=== PATIENT | male | born 1980 | race Caucasian/White ===

== ENCOUNTER 2019-03-21 06:32 | Day surgery (SDC) | payer BC ==
--- NOTE | 2019-03-20 13:37 | PCM.PREANE ---
Preanesthetic Assessment - Anesthesia/Transfusion/Family Hx Anesthesia History: No Prior Anesthesia Family History of Anesthesia Reaction: No Transfusion History: No Prior Transfusion(s) Intubation History: Unknown - Review of Systems General: No Symptoms Pulmonary: No Symptoms (Smoke: occasionally ETOH: couple drinks of liquor nightly) Cardiovascular: No Symptoms (History HTN) Gastrointestinal: No Symptoms Neurological: No Symptoms Other: Reports: Liver Problems (Elevated liver enzymes), Sinus Problem ( Seasonal allergies) - Physical Assessment NPO Status Date: 03/20/19 NPO Status Time: 23:45 Vital Signs: HR:75 SAT:96 RESP:16 BP:144/94 TEMP:97.2 Height: 1.83 m Weight: 83.007 kg ASA Class: 2 Mental Status: Alert & Oriented x3 Airway Class: Mallampati = 2 Dentition: Reports: Normal Dentition, Caries Thyro-Mental Finger Breadths: 3 Mouth Opening Finger Breadths: 3 ROM/Head Extension: Full Lungs: Clear to Auscultation, Normal Respiratory Effort Cardiovascular: Regular Rate, Regular Rhythm, No Murmurs - Lab Values: Laboratory Last Values WBC 5.94 K/mm3 (4.23-9.07) 03/20/19 09:05 RBC 4.73 M/mm3 (4.63-6.08) 03/20/19 09:05 Hgb 14.2 gm/dl (13.7-17.5) 03/20/19 09:05 Hct 41.8 % (40.1-51.0) 03/20/19 09:05 MCV 88.4 fl (79.0-92.2) 03/20/19 09:05 MCH 30.0 pg (25.7-32.2) 03/20/19 09:05 MCHC 34.0 g/dl (32.2-35.5) 03/20/19 09:05 RDW Std Deviation 41.6 fL (35.1-43.9) 03/20/19 09:05 Plt Count 224 K/mm3 (163-337) 03/20/19 09:05 MPV 9.9 fl (9.4-12.3) 03/20/19 09:05 Sodium 141 mEq/L (136-145) 03/20/19 09:05 Potassium 4.3 mEq/L (3.5-5.1) 03/20/19 09:05 Chloride 105 mEq/L (98-107) 03/20/19 09:05 Carbon Dioxide 29 mEq/L (21-32) 03/20/19 09:05 Anion Gap 11.3 (5-15) 03/20/19 09:05 BUN 17 mg/dL (7-18) 03/20/19 09:05 Creatinine 0.9 mg/dL (0.7-1.3) 03/20/19 09:05 Est Cr Clr Drug Dosing TNP 03/20/19 09:05 Estimated GFR (MDRD) > 60 mL/min (>60) 03/20/19 09:05 BUN/Creatinine Ratio 18.9 (14-18) H 03/20/19 09:05 Glucose 110 mg/dL (74-106) H 03/20/19 09:05 Calcium 9.7 mg/dL (8.5-10.1) 03/20/19 09:05 Above labs reviewed and noted and within acceptable ranges to proceed with scheduled procedure. - Imaging/EKG Impressions: EKG: SR rate=68 - Allergies Allergies/Adverse Reactions: Allergies Allergy/AdvReac Type Severity Reaction Status Date / Time No Known Allergies Allergy Verified 03/19/19 10:46 - Anesthesia Plan Pre-Op Medication Ordered: None - Acknowledgements Anesthesia Type Planned: General Anesthesia Pt an Appropriate Candidate for the Planned Anesthesia: Yes Alternatives and Risks of Anesthesia Discussed w Pt/Guardian: Yes Pt/Guardian Understands and Agrees with Anesthesia Plan: Yes PreAnesthesia Questionnaire - HOME MEDS Home Medications: Home Meds Losartan Potassium 100 mg PO DAILY 03/20/19 [History] Multivitamin [Multi-Day Vitamins] 1 tab PO DAILY 03/20/19 [History] Acetaminophen/HYDROcodone [Grant 325-5 MG] 1 - 2 tab PO Q6H PRN #20 tablet 03/21 [Rx] Aspirin 325 mg PO BID #84 tab 03/21/19 [Rx] - CURRENT (IN HOUSE) MEDS Current Meds: Current Medications Epinephrine HCl (Adrenalin) 3 mg IRR ONETIME DAREK Stop: 03/21/19 23:00 Lactated Ringer's (Ringers, Lactated) 1,000 mls @ 125 mls/hr IV ASDIRECTED DAREK Stop: 03/21/19 23:00 Lidocaine/Sodium Bicarbonate (Buffered Lidocaine 1% In Ns 8.4%) 0.25 ml IDERM ONETIME PRN PRN Reason: Prior to IV Start Stop: 03/21/19 23:00 Sodium Chloride (Saline Flush) 10 ml FLUSH ASDIRECTED PRN PRN Reason: Keep Vein Open Stop: 03/21/19 23:00
[2019-03-21] MEDS ORDERED: Lidocaine 1% 6 ML ONE (06:40)
[2019-03-21] MEDS ORDERED: Ondansetron 4 MG/2 ML SDV ONE (06:40)
[2019-03-21] MEDS ORDERED: Lactated Ringers 1,000 ML ONE (06:40)
[2019-03-21] MEDS ORDERED: Ketorolac 30 MG/ML SDV ONE (06:40)
[2019-03-21] MEDS ORDERED: Dexamethasone 4 MG/ML 5 ML MDV ONE (06:40)
[2019-03-21] MEDS ORDERED: ceFAZolin 1 GM Vial ONE (06:40)
[2019-03-21] MEDS ORDERED: Propofol 200 MG/20 ML SDV ONE ×2 (06:41→07:16)
[2019-03-21] MEDS ORDERED: HYDROmorphone 0.5 MG/0.5 ML Syringe ONE (06:41)
[2019-03-21] MEDS ORDERED: Midazolam 1 MG/ML 2 ML SDV ONE (06:42)
[2019-03-21] MEDS ORDERED: fentaNYL 250 MCG/5 ML SDV ONE (06:42)
[2019-03-21] MEDS ORDERED: Lactated Ringers 1,000 ML IV SCH (07:00)
[2019-03-21] MEDS ORDERED: EPINEPHrine 1 MG/ML 30 ML MDV IRR SCH (07:00)
[2019-03-21] MEDS ORDERED: Lidocaine 1%/Sod Bicarbonate in NS 8.4% 1 ML Syringe IDERM PRN (07:00)
[2019-03-21] MEDS ORDERED: Sodium Chloride 0.9% 10 ML Syringe FLUSH PRN (07:00)
[2019-03-21] MEDS ORDERED: Bupivacaine 0.25% 10 ML SDV ONE (07:16)
[2019-03-21] MEDS ORDERED: Albuterol 6.7 GM Inhaler INH ONE (07:44)
[2019-03-21] MEDS ORDERED: diphenhydrAMINE 50 MG/ML SDV IVPUSH PRN (07:50)
[2019-03-21] MEDS ORDERED: ePHEDrine 50 MG/ML SDV IVPUSH PRN (07:50)
[2019-03-21] MEDS ORDERED: HYDROmorphone 0.5 MG/0.5 ML Syringe IVPUSH PRN (07:50)
[2019-03-21] MEDS ORDERED: Albuterol 0.083% 2.5 MG/3 ML Neb Soln NEB PRN (07:50)
[2019-03-21] MEDS ORDERED: Ondansetron 4 MG/2 ML SDV IVPUSH PRN (07:50)
[2019-03-21] MEDS ORDERED: fentaNYL 100 MCG/2 ML SDV IVPUSH PRN (07:50)
[2019-03-21] MEDS ORDERED: Phenylephrine 1 MG in Sodium Chloride 0.9% 10 ML IV SCH (08:00)
--- NOTE | 2019-03-21 08:47 | PCM.POSTAN ---
POST ANESTHESIA ASSESSMENT - MENTAL STATUS Mental Status: Alert - VITAL SIGNS Vital Signs: Last Vital Signs Temp 36.7 C 03/21/19 08:33 Pulse 75 03/21/19 06:35 Resp 20 03/21/19 08:45 BP 137/81 03/21/19 08:45 Pulse Ox 99 03/21/19 08:45 - RESPIRATORY Respiratory Status: Respiratory Rate WNL, Airway Patent, O2 Saturation Stable, Supplemental Oxygen - CARDIOVASCULAR CV Status: Pulse Rate WNL, Blood Pressure Stable - GASTROINTESTINAL GI Status: No Symptoms - POST OP HYDRATION Hydration Status: Adequate & Stable
[2019-03-21] MEDS ORDERED: Acetaminophen/HYDROcodone 325-5 MG Tab PO PRN (09:11)
--- NOTE | 2019-03-21 09:11 | PCM48HPAN ---
Post Anesthesia Note - EVALUATION WITHIN 48HRS OF ANESTHETIC Vital Signs in Normal Range: Yes Patient Participated in Evaluation: Yes Respiratory Function Stable: Yes Airway Patent: Yes Cardiovascular Function Stable: Yes Hydration Status Stable: Yes Pain Control Satisfactory: Yes Nausea and Vomiting Control Satisfactory: Yes Mental Status Recovered: Yes Vital Signs: Last Vital Signs Temp 36.7 C 03/21/19 08:33 Pulse 75 03/21/19 06:35 Resp 22 H 03/21/19 09:00 BP 147/94 H 03/21/19 09:00 Pulse Ox 97 03/21/19 09:06
--- NOTE | 2019-03-26 12:22 | PCM.OPNOTE ---
- General Post-Op/Procedure Note Date of Surgery/Procedure: 03/21/19 Operative Procedure(s): left knee video arthroscopy with partial medial meniscectomy Pre Op Diagnosis: left knee medial meniscus tear Post-Op Diagnosis: Same Anesthesia Technique: General LMA, Local Primary Surgeon: Uche Whyte Anesthesia Provider: Rachel Duarte Head Sulfide Operator: Kandy Esteves in mLs: 5 Complications: None Condition: Good
--- NOTE | 2019-03-26 13:55 | OR ---
DATE OF OPERATION: 03/21/2019 SURGEON: Uche Whyte MD OPERATION PERFORMED: Left knee video arthroscopy with partial medial meniscectomy. PREOPERATIVE DIAGNOSIS: Left knee medial meniscus tear. POSTOPERATIVE DIAGNOSIS: Left knee medial meniscus tear. ANESTHESIA: General LMA with local. ANESTHESIA PROVIDER: Rachel Duarte CRNA. STAFF CYTOTECHNOLOGIST: Kandy Esteves PA-C. ESTIMATED BLOOD LOSS: Less than 5 mL. COMPLICATIONS: None. CONDITION: Stable. DESCRIPTION OF PROCEDURE: The patient was identified in the preop holding area. Proper site was marked and identified by the surgeon. The patient was taken back to the operating theater, where after adequate anesthesia, the patient's right lower extremity was placed in a well leg rodriguez and placed in a dependent position. Left lower extremity had a nonsterile tourniquet applied and then was placed in a C-clamp rodriguez. Foot of the bed was then lowered. Left lower extremity was then sterilely prepped and draped in the usual sterile fashion. OR time-out was performed. The patient received 2 g of IV Ancef. Left lower extremity was exsanguinated and tourniquet was insufflated to 250 mmHg. Standard anterior lateral portal incision was made. Scope trocar was introduced. The patient had only a small amount of grade 1 chondromalacia of the patellofemoral joint. The patient did have synovitis noted medially. Attention was turned to the medial compartment. Spinal needle was used for creation of anteromedial portal. 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 A partial medial meniscectomy was then undertaken back to a stable rim, resecting roughly 15% to 20% of the meniscus. At this point, the patient had very minimal chondromalacia of the medial compartment. ACL was intact in the notch. Lateral compartment showed no lateral meniscus tear or chondromalacia. Partial synovectomy of the medial side was performed. Excess saline was drained from the knee. 3-0 nylon suture was used for closure of the portal incisions. Local was injected. The patient had a sterile soft dressing applied and sent to PACU in stable condition. MMODAL /[id number]
== END 2019-03-21 10:15 | disposition home or self-care (01) ==
LOC: JD.SDS 06:32
PROVIDERS: ATTEND Orthopaedic Surgery
DX: M23.222 Derangement of posterior horn of medial meniscus due to old tear or injury, left knee (principal); M22.42 Chondromalacia patellae, left knee; M65.9 Synovitis and tenosynovitis, unspecified; I10 Essential (primary) hypertension; Z87.891 Personal history of nicotine dependence; Z79.82 Long term (current) use of aspirin; Z79.899 Other long term (current) drug therapy
CPT/HCPCS: 29881; 36415; 80048; 85027; 93005; A9270; J0690; J1100; J1170; J1885; J2001; J2250; J2405; J2704; J3010; J3490; J7120; 01400